=== PATIENT | female | born 1955 | race African-American/Black ===

== ENCOUNTER 2021-07-05 12:38 | Observation (INO) ==
[2021-07-05 15:32] LABS: ABS Basophils 0.1 10^3/ul (0-0.2); ABS Eosinophils 0.1 10^3/ul (0-0.6); ABS Monocytes 0.5 10^3/ul (0-0.8); ABS Neutrophils 5.4 10^3/ul (1.5-7.7); Eosinophil % 1.5 %; Hematocrit 47 % (35-47); Hemoglobin 15.8 g/dL (12.0-16.0); Lymphocyte % 13.8 %; Mean Corpuscular HGB Conc 33 g/dL (31-36); Mean Corpuscular Hemoglobin 29 pg (27-31); Mean Corpuscular Volume 88 fL (80-97); Mean Platelet Volume 7.8 fL (7.4-10.4); Nucleated Red Blood Cells % 0.1; Platelet Count 219 10^3/uL (150-450); Red Blood Count 5.39 10^6 /uL (3.70-4.87); Red Cell Distribution Width 15 % (10-15); White Blood Count 7.1 10^3/uL (3.5-10.8)
[2021-07-05] MEDS ORDERED: Ondansetron ODT 4 mg TAB 4 MG TAB SL ONE (15:37)
[2021-07-05 15:41] LABS: INR 1.09 (0.86-1.15)
[2021-07-05 15:51] LABS: ALT 13 U/L (7-52); AST 18 U/L (13-39); Albumin 4.3 g/dL (3.2-5.2); Albumin/Globulin Ratio 1.5 (1-3); Alkaline Phosphatase 93 U/L (35-149); Anion Gap 7 mmol/L (2-11); Blood Urea Nitrogen 6 mg/dL (6-24); CO2 Carbon Dioxide 27 mmol/L (22-32); Calcium 9.6 mg/dL (8.6-10.3); Chloride 102 mmol/L (101-111); Globulin 2.9 g/dL (2-4); Glucose 101 mg/dL (70-100); Potassium 3.7 mmol/L (3.5-5.0); Sodium 136 mmol/L (135-145); Total Protein 7.2 g/dL (6.4-8.9); eGFR CKD-EPI 80.7 (>60)
[2021-07-05 15:54] LABS: Troponin I 0.14 ng/mL (<0.03)
[2021-07-05 16:02] LABS: Urine Appearance Cloudy; Urine Bilirubin Negative (Negative); Urine Blood 2+ (Negative); Urine Color Yellow; Urine Glucose Negative (Negative); Urine Ketones Negative (Negative); Urine Nitrite Negative (Negative); Urine Protein Negative (Negative); Urine Specific Gravity 1.012 (1.002-1.030); Urine Urobilinogen Negative (Negative)
[2021-07-05 16:09] LABS: Urine Bacteria Absent (Absent); Urine Red Blood Cell Trace(0-2/hpf) (Absent); Urine Renal Epithelial Cells Present (Absent); Urine Squamous Epithelial Cell Present (Absent); Urine White Blood Cell 3+(>20/hpf) (Absent); Urine Yeast Present (Absent)
[2021-07-05] MEDS ORDERED: Iohexol 300 (CONTRAST) 10 ML SDV IV ONE (16:35)
[2021-07-05 19:21] LABS: Troponin I 0.12 ng/mL (<0.03)
[2021-07-05] MEDS ORDERED: Lactated Ringers 1000 ml BAG 1,000 ML IV SCH (20:00)
[2021-07-05] MEDS ORDERED: Saline NASAL DROPS 0.65% BTL BOTH NARES PRN (20:00)
[2021-07-05] MEDS: Enoxaparin 40 MG/0.4 ML SYR SUBCUT SCH (20:43)
[2021-07-05 22:06] LABS: Rapid Strep Molecular Negative (Negative)
[2021-07-05 22:26] LABS: Troponin I 0.12 ng/mL (<0.03)
[2021-07-06] MEDS: Phenol 1.4% Throat Spray 177 ml BTL MT PRN ×3 (00:54→22:45)
[2021-07-06 05:58] LABS: Hematocrit 36 % (35-47); Mean Corpuscular HGB Conc 33 g/dL (31-36); Mean Corpuscular Hemoglobin 30 pg (27-31); Mean Corpuscular Volume 89 fL (80-97); Mean Platelet Volume 7.7 fL (7.4-10.4); Platelet Count 173 10^3/uL (150-450); Red Blood Count 4.08 10^6 /uL (3.70-4.87); Red Cell Distribution Width 14 % (10-15); White Blood Count 4.2 10^3/uL (3.5-10.8)
[2021-07-06 06:08] LABS: INR 1.26 (0.86-1.15)
[2021-07-06 06:13] LABS: Calcium 7.9 mg/dL (8.6-10.3); Potassium 3.3 mmol/L (3.5-5.0); eGFR CKD-EPI 100.8 (>60)
[2021-07-06 07:00] LABS: RBC Morphology Normal (Normal)
[2021-07-06 07:01] LABS: ABS Eosinophils 0.1 10^3/ul (0-0.6); ABS Lymphocytes 1.1 10^3/ul (1.0-4.8); ABS Monocytes 0.3 10^3/ul (0-0.8); ABS Neutrophils 2.6 10^3/ul (1.5-7.7); Eosinophil % 3.3 %; Lymphocyte % 26.3 %; Nucleated Red Blood Cells % 0.1
[2021-07-06] MEDS ORDERED: Potassium Chlor 20 meq TAB.ER PO ONE (10:33)
[2021-07-06] MEDS: KCL 20 MEQ/100 ML IVPREMIX 20 MEQ/100 ML BAG IV SCH ×2 (10:50→13:37)
[2021-07-06] MEDS: methylPREDNISolone TAB* 4 MG - DAY 1 1300,1800 PO SCH ×2 (13:31→17:15)
[2021-07-06] MEDS: Enoxaparin 40 MG/0.4 ML SYR SUBCUT SCH (20:35)
[2021-07-06] MEDS ORDERED: methylPREDNISolone TAB* 8 MG - DAY 1 0800,2100 PO SCH (21:00)
[2021-07-07] MEDS: Phenol 1.4% Throat Spray 177 ml BTL MT PRN (01:05)
[2021-07-07 05:13] LABS: ABS Monocytes 0.2 10^3/ul (0-0.8); ABS Neutrophils 4.4 10^3/ul (1.5-7.7); Eosinophil % 0.1 %; Hematocrit 42 % (35-47); Hemoglobin 14.1 g/dL (12.0-16.0); Mean Corpuscular HGB Conc 34 g/dL (31-36); Mean Corpuscular Hemoglobin 30 pg (27-31); Mean Corpuscular Volume 89 fL (80-97); Mean Platelet Volume 7.5 fL (7.4-10.4); Nucleated Red Blood Cells % 0.1; Platelet Count 220 10^3/uL (150-450); Red Blood Count 4.75 10^6 /uL (3.70-4.87); Red Cell Distribution Width 14 % (10-15); White Blood Count 5.6 10^3/uL (3.5-10.8)
[2021-07-07 05:27] LABS: Calcium 9.5 mg/dL (8.6-10.3); Potassium 4.6 mmol/L (3.5-5.0); eGFR CKD-EPI 95.7 (>60)
[2021-07-07] MEDS: methylPREDNISolone TAB* 4 MG - DAY 2 0700,1300,1800 PO SCH ×2 (07:35→13:03)
[2021-07-07 13:13] VITALS: BP 128/85
[2021-07-07] MEDS ORDERED: methylPREDNISolone TAB* 8 MG - DAY 2 2100 PO SCH (21:00)
[2021-07-08] MEDS ORDERED: methylPREDNISolone TAB* 4 MG - DAY 3 0700,1300,1800,2100 PO SCH (07:00)
[2021-07-09] MEDS ORDERED: methylPREDNISolone TAB* 4 MG - DAY 4 0700,1300,2100 PO SCH (07:00)
[2021-07-10] MEDS ORDERED: methylPREDNISolone TAB* 4 MG - DAY 5 0700,2100 PO SCH (07:00)
[2021-07-11] MEDS ORDERED: methylPREDNISolone TAB* 4 MG - DAY 6 0700 PO SCH (07:00)
== END 2021-07-07 16:35 | disposition home or self-care (01) ==
LOC: EDHOLD 12:38 → ED 12:38 → MEDTELE 07-06 11:01
PROVIDERS: ADMIT Hospitalist; ATTEND Hospitalist